=== PATIENT | male | born 1970 | race Caucasian/White ===

== ENCOUNTER 2019-01-25 11:15 | Emergency (ER) | payer OTHER ==
[2019-01-25] MEDS: EPINEPHrine 1 MG INJ SC (12:02)
== END 2019-01-25 12:57 | disposition home or self-care (01) ==
LOC: FTE 11:15
DX: T78.1XXA Other adverse food reactions, not elsewhere classified, initial encounter (principal); R22.0 Localized swelling, mass and lump, head; J45.909 Unspecified asthma, uncomplicated; R21 Rash and other nonspecific skin eruption
CPT/HCPCS: 96372; 99284-25; J0171